=== PATIENT | male | born 1955 | race Caucasian/White ===

== ENCOUNTER 2017-04-10 21:25 | Emergency (ER) | payer BC ==
[2017-04-10 21:49] VITALS: BP 125/71; PULSE 62; TEMP 98.6; BMI 23.3
--- NOTE | 2017-04-10 21:49 | PDOC ---
History of Present Illness - General History Source: Patient Exam Limitations: No Limitations - History of Present Illness Initial Comments: 04/10/17 21:49 62 year old male with a PMHx of enlarged prostate, hypercholesterolemia, presents to the ED with right leg pain today. Patient he was exercising when he felt pain a sudden onset of pain in his right calf. He iced the area and rested , with worsening pain. He believes he may have torn something so he came to be evaluated. Denies numbness or tingling. No other complaints. SHx: non-smoker, alcohol use (1-2 drinks/day) <Dilcia Smith - Last Filed: 04/10/17 21:52> <Naima Nettles - Last Filed: 04/11/17 06:13> - General Chief Complaint: Pain, Acute Stated Complaint: R CALF PAIN Time Seen by Provider: 04/10/17 21:27 Past History <Dilcia Smith - Last Filed: 04/10/17 21:52> - Past Medical History Hypercholesterolemia: Yes Other medical history: PROSTATE - Psycho/Social/Smoking Cessation Hx Anxiety: No Suicidal Ideation: No Smoking History: Unknown if ever smoked Have you smoked in the past 12 months: No Number of Cigarettes Smoked Daily: 0 Information on smoking cessation initiated: No Hx Alcohol Use: No Drug/Substance Use Hx: No Substance Use Type: None <Naima Nettles - Last Filed: 04/11/17 06:13> - Past Medical History Allergies/Adverse Reactions: Allergies Allergy/AdvReac Type Severity Reaction Status Date / Time No Known Allergies Allergy Unverified 04/10/17 21:32 Home Medications: Ambulatory Orders Atorvastatin Ca [Lipitor] 10 mg PO HS 04/10/17 Diclofenac Sodium 75 mg PO BID PRN #20 tablet. 04/10/17 Tamsulosin HCl [Flomax] 0.4 mg PO DAILY 04/10/17 Review of Systems - Review of Systems Constitutional: No: Symptoms Reported Respiratory: No: Symptoms reported Cardiac (ROS): No: Symptoms Reported Musculoskeletal: Yes: Other (right calf pain) Integumentary: No: Symptoms Reported, Erythema, Rash Neurological: No: Symptoms reported, Numbness, Tingling All Other Systems: Reviewed and Negative <Dilcia Smith - Last Filed: 04/10/17 21:52> *Physical Exam - Vital Signs Last Vital Signs Temp Pulse Resp BP Pulse Ox 98.6 F 62 14 125/71 99 04/10/17 21:29 04/10/17 21:29 04/10/17 21:29 04/10/17 21:29 04/10/17 21:29 - Physical Exam Comments: 04/10/17 21:51 GENERAL: The patient is awake, alert, and fully oriented, in no acute distress. HEAD: Normal with no signs of trauma. EYES: Pupils equal, round and reactive to light, extraocular movements intact, sclera anicteric, conjunctiva clear. EXTREMITIES: Moderate tenderness to palpation of the right calf without ecchymosis or deformity. No achilles tendon step off palpated. 1+ pitting edema bilaterally. Distal right lower extremity was warm, dry, good cap refill with sensory functioning intact. Pain with active and passive dorsiflexion of the right foot. Hwang test was negative. NEUROLOGICAL: Normal speech, normal gait. PSYCH: Normal mood, normal affect. SKIN: Warm, Dry, normal turgor, no rashes or lesions noted. <Dilcia Smith - Last Filed: 04/10/17 21:52> - Vital Signs Last Vital Signs Temp Pulse Resp BP Pulse Ox 98.6 F 62 14 125/71 99 04/10/17 21:29 04/10/17 21:29 04/10/17 21:29 04/10/17 21:29 04/10/17 21:29 <Naima Nettles - Last Filed: 04/11/17 06:13> Progress Note - Progress Note Progress Note: Documentation has been prepared under my direction and personally reviewed by me in its entirety. I attest that this documented accurately reflects all work, treatment, procedures and medical decision making performed by me. <Naima Nettles - Last Filed: 04/11/17 06:13> Medical Decision Making - Medical Decision Making 62-year-old man, visiting the area from [place], presents with right calf pain that occurred suddenly while he was exercising in his hotel gym. Patient describes holding 30 pound weights while rising on his toes. He suddenly felt pain and "pop" sensation in his right calf. Since then, he is had pain with walking. No history of calf muscle strain/tear or Achilles tendinopathy. Exam reveals tenderness of the right calf muscle without acute inflammation, masses or palpable cords. Because of the clear nature of this pain occurring during strenuous physical activity, presentation most consistent with calf muscle partial tear. It is Extremely unlikely that this sudden pain is of thromboembolic etiology. Patient discharged after Kirill wrap of the right lower leg; he should elevate and ice the area as much as possible over the next few days. He should use crutches for ambulation. Patient is planning on returning to [place] in 48 hours, if he has worsening of his symptoms prior to this, he should return to the ER. He has also been given referral information for [facility]. He should follow-up with orthopedic surgery when he returns home. <Naima Nettles - Last Filed: 04/11/17 06:13> *DC/Admit/Observation/Transfer - Attestations Scribe Attestion: 04/10/17 21:51 Documentation prepared by Dilcia Smith, acting as medical transcription radiology for Naima Nettles MD. <Dilcia Smith - Last Filed: 04/10/17 21:52> <Naima Nettles - Last Filed: 04/11/17 06:13> Diagnosis at time of Disposition: Strain of calf muscle Qualifiers: Encounter type: initial encounter Laterality: right Qualified Code(s): S86.811A - Strain of other muscle(s) and tendon(s) at lower leg level, right leg , initial encounter - Discharge Dispostion Disposition: HOME Condition at time of disposition: Stable - Prescriptions Prescriptions: Diclofenac Sodium 75 mg PO BID PRN #20 tablet.dr WEAVER Reason: Moderate Pain - Referrals Referrals: Milton Mayen MD [Staff Physician] - 24 hours - Patient Instructions Printed Discharge Instructions: Calf Muscle Strain Additional Instructions: Crutches for ambulation until seen by orthopedist continue compression (Kirill wrap or compression stocking) elevation/ ice to calf for the next 2 days Diclofenac 75 mg twice a day as needed (take with food) Return to ER or see orthopedic group (Dr. Mayen) tomorrow if pain worsens Follow-up with your orthopedist when you return home
== END 2017-04-10 22:22 | disposition home or self-care (01) ==
LOC: FER 21:25
DX: S86.811A Strain of other muscle(s) and tendon(s) at lower leg level, right leg, initial encounter (principal); N40.0 Benign prostatic hyperplasia without lower urinary tract symptoms; E78.00 Pure hypercholesterolemia, unspecified; X50.3XXA Overexertion from repetitive movements, initial encounter; Y93.B9 Activity, other involving muscle strengthening exercises; Y92.39 Other specified sports and athletic area as the place of occurrence of the external cause
CPT/HCPCS: 99282-25